=== PATIENT | male | born 1950 | race Native Hawaiian/Other Pacific Islander ===

== ENCOUNTER 2017-03-16 08:02 | Outpatient (CLI) | payer OTHER, MEDICARE ==
[~2017-03-16 08:02] MED LIST: ASPIRIN325 M1 OR; BAYER ASA325 M1 OR; CARV12.5 PO; INSU100P SC; LEVEMIR FLEXPEN SC; LEVO0.0529 PO; LIPITOR80 MG PO; PLAVIX75 MG PO
[2017-03-16 08:39] LABS: PLATELET COUNT 315 K/uL (142-355)
[2017-03-16 09:18] LABS: POTASSIUM 4.3 mmol/L (3.6-5.2)
== END 2017-03-16 11:00 | disposition home or self-care (01) ==
LOC: LABW 08:02
PROVIDERS: Student in an Organized Health Care Education/Training Program
DX: I10 Essential (primary) hypertension (principal); E11.9 Type 2 diabetes mellitus without complications; Z86.73 Personal history of transient ischemic attack (TIA), and cerebral infarction without residual deficits
CPT/HCPCS: 36415; 80053; 80061; 83036; 84153; 84439; 84443; 85027; 93005

== ENCOUNTER 2018-01-03 10:44 | Outpatient (CLI) | payer OTHER ==
[2018-01-03 11:38] LABS: PLATELET COUNT 298 K/uL (142-355)
[2018-01-03 12:00] LABS: POTASSIUM 5.3 mmol/L (3.6-5.2)
== END 2018-01-03 21:57 | disposition home or self-care (01) ==
LOC: LABW 10:44
PROVIDERS: Internal Medicine
DX: R05 Cough (principal); I25.89 Other forms of chronic ischemic heart disease; E11.9 Type 2 diabetes mellitus without complications; I10 Essential (primary) hypertension; E55.9 Vitamin D deficiency, unspecified; Z12.5 Encounter for screening for malignant neoplasm of prostate
CPT/HCPCS: 36415; 80053; 80061; 82306; 83036; 84153; 84443; 85027

== ENCOUNTER → 2019-02-13 03:04 | Outpatient (CLI) | payer OTHER | END | disposition home or self-care (01) | LOC: AMB 03:04 | DX: E16.1 Other hypoglycemia (principal) ==

== ENCOUNTER 2019-04-25 17:12 | Outpatient (CLI) | payer OTHER ==
[2019-04-25 18:03] LABS: PLATELET COUNT 327 K/uL (142-355)
[2019-04-25 19:24] LABS: POTASSIUM 6.6 mmol/L (3.6-5.2)
== END 2019-04-25 22:20 | disposition home or self-care (01) ==
LOC: LAB 17:12
PROVIDERS: Internal Medicine
DX: I10 Essential (primary) hypertension (principal); I25.10 Atherosclerotic heart disease of native coronary artery without angina pectoris; E78.00 Pure hypercholesterolemia, unspecified; I63.89 Other cerebral infarction; Z12.5 Encounter for screening for malignant neoplasm of prostate; E11.9 Type 2 diabetes mellitus without complications
CPT/HCPCS: 80053; 80061; 83036; 84403; 84443; 85027

== ENCOUNTER 2019-05-04 13:22 | Outpatient (CLI) | payer OTHER ==
[2019-05-04 14:26] LABS: POTASSIUM 6.9 mmol/L (3.6-5.2)
== END 2019-05-04 23:48 | disposition home or self-care (01) ==
LOC: LAB 13:22
PROVIDERS: Internal Medicine
DX: E87.5 Hyperkalemia (principal)
CPT/HCPCS: 80048

== ENCOUNTER 2020-04-16 08:22 | Outpatient (CLI) | payer OTHER | END 2020-04-16 19:01 | disposition home or self-care (01) | LOC: LAB 08:22 | DX: U07.1 COVID-19 (principal); J02.9 Acute pharyngitis, unspecified; R51 Headache; R53.83 Other fatigue | CPT/HCPCS: 87635; G2023; U00003 ==

== ENCOUNTER 2020-10-09 12:23 | Outpatient (CLI) | payer OTHER | END 2020-10-09 21:35 | disposition home or self-care (01) | LOC: INF 12:23 | PROVIDERS: ATTEND Internal Medicine Endocrinology, Diabetes & Metabolism | DX: Z23 Encounter for immunization (principal) | CPT/HCPCS: 96372 ==

== ENCOUNTER 2020-11-06 14:00 | Outpatient (CLI) | payer OTHER | END 2020-11-06 20:01 | disposition home or self-care (01) | LOC: INF 14:00 | PROVIDERS: ATTEND Internal Medicine Endocrinology, Diabetes & Metabolism | DX: Z23 Encounter for immunization (principal) | CPT/HCPCS: 96372 ==